=== PATIENT | female | born 1995 | race Caucasian/White ===

== ENCOUNTER 2023-04-16 23:15 | Emergency (ER) | payer MEDICAID, OTHER ==
[~2023-04-16] VITALS: Ht 160 cm; Wt 117.9 kg
[~2023-04-16 23:15] MED LIST: FERR325E14 PO; PREN-385 PO
[2023-04-16 23:25] VITALS: BP 130/76; PULSE 82; RESP 18; TEMP 97.8; O2SAT 99
[2023-04-17 00:04] LABS: FLU A ANTIGEN negative (NEGATIVE); FLU B ANTIGEN NEGATIVE (NEGATIVE)
[2023-04-17] MEDS ORDERED: ACETAMIN/CODEINE 120/12MG-5ML 5 ML UDC PO ONE (00:20)
[2023-04-17] MEDS ORDERED: ROBAC PO (00:23)
[2023-04-17] MEDS ORDERED: PSEU120T23 PO (00:23)
[2023-04-17 00:40] VITALS: BP 132/76; PULSE 82; RESP 18; TEMP 97.8; O2SAT 99
== END 2023-04-17 00:40 | disposition home or self-care (01) ==
LOC: MED 23:15
DX: J06.9 Acute upper respiratory infection, unspecified (principal); Z20.822 Contact with and (suspected) exposure to COVID-19
CPT/HCPCS: 71045; 99284